=== PATIENT | female | born 1995 | race African-American/Black ===

== ENCOUNTER 2023-06-17 11:42 | Emergency (ER) | payer BC ==
[~2023-06-17] VITALS: Ht 177.8 cm; Wt 90.7 kg
[2023-06-17 12:22] VITALS: BP 149/109; PULSE 89; RESP 18; TEMP 98; O2SAT 98
[2023-06-17] MEDS ORDERED: KETOROLAC 30 MG/ML VIAL ONE (14:57)
[2023-06-17] MEDS ORDERED: SULF-59 PO (14:58)
[2023-06-17] MEDS ORDERED: CEPH-588 PO (14:58)
[2023-06-17] MEDS ORDERED: IBUP-2213 PO (14:58)
[2023-06-17 15:11] VITALS: BP 139/98; PULSE 89; RESP 18; TEMP 98; O2SAT 98
[2023-06-17] MEDS ORDERED: KETOROLAC 30 MG/ML VIAL IM ONE (15:20)
== END 2023-06-17 15:11 | disposition home or self-care (01) ==
LOC: MED 11:42
DX: N76.4 Abscess of vulva (principal); Z79.899 Other long term (current) drug therapy
CPT/HCPCS: 81025; 96372; 99283; J1885